=== PATIENT | male | born 1985 | race African-American/Black ===

== ENCOUNTER 2017-01-06 14:50 | Emergency (ER) | payer MEDICAID, OTHER ==
[~2017-01-06] VITALS: Ht 182.9 cm; Wt 99.5 kg
[2017-01-06 14:57] VITALS: Ht 182.9 cm; Wt 99.5 kg
[2017-01-06] MEDS ORDERED: KETOROLAC 30 MG INJ IM STA (16:00)
[2017-01-06] MEDS ORDERED: DIAZEPAM 5 MG/ML SYG IM ONE (16:00)
--- NOTE | 2017-01-06 17:01 | RADRPT ---
PROCEDURE: XR Lumbar Spine. CLINICAL INDICATION: Low back pain. TECHNIQUE: AP, cone-down lateral, and lateral views of the lumbar spine were obtained. COMPARISON: None. FINDINGS: Mineralization is within normal limits. Vertebral bodies are normal in height. No fracture is iden tified. Lumbar lordosis is straightened. No vertebral subluxation is seen. The intervertebral dis cs are normal in height except for L4-5 which demonstrates trace narrowing and anterior spondylosis. Paraspinal contours are unremarkable. RPTAT:HJJR IMPRESSION: 1. Trace disk narrowing and anterior spondylosis at L4-5. 2. Straightening of the normal lumbar lordosis may be from positioning but cannot exclude spasm. Physician Genaro Date Time Electronically viewed and signed by Physician Genaro on 01/06/2017 17:01 /
--- NOTE | 2017-01-06 17:02 | RADRPT ---
PROCEDURE: XR Abdomen. CLINICAL INDICATION: Abdominal pain TECHNIQUE: Supine AP abdomen x-rays, 2 images submitted for review. COMPARISON: None. FINDINGS: The bowel gas pattern is normal. There is no evidence of obstruction. No visceromegaly, soft tissue mass or pathologic calcification is demonstrated. The osseous structures are unremarkable. RPTAT:HJJR IMPRESSION: Unremarkable abdomen radiographs. Physician Genaro Date Time Electronically viewed and signed by Physician Genaro on 01/06/2017 17:02 /
[2017-01-06] MEDS ORDERED: CYCL5TAB PO (17:11)
[2017-01-06] MEDS ORDERED: IBUP-1542 PO (17:11)
--- NOTE | 2017-01-06 17:25 | ERD ---
ER Documentation Chief Complaint Date/Time DATE: 01/06/17 TIME: 17:23 Chief Complaint BACK PAIN X 3 DAYS HPI 31-year-old male otherwise healthy complains of lower back pain that started 3 walking. Patient states he had a similar incident several years ago that happened when he was walking and he felt as if it was a spasm feeling and got better after taking ibuprofen and Tylenol. Patient reports it is better with questions, he is requesting an x-ray at this time to check for any constipation or gas issues. Pain is diffuse in the lumbar region, it is not midline however it is on the lateral aspects of the low back, and it radiates laterally only. He denies any buttock pain, chest pain, shortness of breath. No fevers or chills. Denies IVDA. He denies any saddle anesthesia or loss of bowel or bladder function. ROS All systems reviewed and are negative except as per history of present illness. Medications Home Meds Active Scripts Cyclobenzaprine Hcl* (Cyclobenzaprine Hcl*) 5 Mg Tablet, 5 MG PO Q8H Y for PAIN , #15 TAB Prov:FRANCISCO LAMBERT PA-C 01/06/17 Ibuprofen* (Motrin*) 600 Mg Tab, 600 MG PO Q6, #30 TAB Prov:FRANCISCO LAMBERT PA-C 01/06/17 Allergies Allergies: Coded Allergies: No Known Allergy (Unverified , 01/06/17) PMhx/Soc Medical and Surgical Hx: pt denies Medical Hx, pt denies Surgical Hx Hx Alcohol Use: No Hx Substance Use: No Hx Tobacco Use: No Smoking Status: Never smoker Physical Exam Vitals Vital Signs Date Time Temp Pulse Resp B/P Pulse Ox O2 Delivery O2 Flow Rate FiO2 01/06/17 14:57 98.3 82 20 119/86 96 Physical Exam General: Well-developed, well-nourished. The patient appears in no acute distress. HEENT: Head is normocephalic, atraumatic. No scleral icterus. Neck: Supple. Nontender. Lungs: Clear to auscultation. Normal air movement. Heart: Regular rate and rhythm. S1 and S2 are normal. No murmurs, gallops, or rubs. Abdomen: Nondistended. Back: No midline tenderness, no rash, no step-offs, atraumatic. There is diffuse lumbar tenderness laterally on the left and right. Neurologic: Alert and oriented 3. No focal deficits. Skin: Normal turgor. No rash or lesions. Results 24 hrs Current Medications Medications (Trade) Dose Ordered Sig/Shiv Route PRN Reason Start Time Stop Time Status Last Admin Dose Admin Ketorolac Tromethamine (Toradol) 30 mg ONCE STAT IM 01/06/17 16:00 01/06/17 16:02 DC Diazepam (Valium) 5 mg ONCE ONCE IM 01/06/17 16:00 01/06/17 16:02 DC Procedures/MDM MDM: 31-year-old male comes in with low back pain, there is diffuse tenderness in the lumbar region, x-rays show lumbar straightening that is consistent with a spasm, and anterior spondylosis of L4-L5 as well. He does not show any signs of cauda equina, epidural abscess, neurologic compromise, epidural hematoma, epidural abscess or abnormalities are primary differential diagnosis. He will be given a short course of ibuprofen as well as Flexeril to take. KUB was unremarkable at this time, all x-ray findings were discussed with the patient and he will be discharged home with hospice. Departure Diagnosis: Primary Impression: Back pain Condition: Good Patient Instructions: Causes of Lumbar (Low Back) Pain Additional Instructions: Call your primary care doctor TOMORROW for an appointment during the next 1-2 days.See the doctor sooner or return here if your condition worsens before your appointment time. FRANCISCO LAMBERT PA-C January 06, 2017 17:25
== END 2017-01-06 17:35 | disposition home or self-care (01) ==
LOC: FTE 14:50
DX: M54.5 Low back pain (principal)
CPT/HCPCS: 72100; 74000; 96372; J1885; J3360; Z7502